=== PATIENT | female | born 1990 | race Caucasian/White ===

== ENCOUNTER 2020-10-06 15:14 | Emergency (ER) | payer OTHER, SELFPAY ==
[2020-10-06 15:24] VITALS: BP 144/15; PULSE 98; RESP 22; TEMP 36.8; O2SAT 98; BMI 33.5
--- NOTE | 2020-10-06 15:34 | HMH.EDGENADL ---
ED Disposition Clinical Impression: Anxiety, Panic attack Disposition: Home, Self-Care Condition on Discharge: Fair Instructions: DI for Anxiety -- Adult, DI for Panic Disorder Additional Instructions: You have been evaluated for anxiety and panic attack. Please follow-up with your primary care doctor. Take all medications as prescribed. Take Vistaril as needed. Return to the emergency department if you have any new or worsening symptoms. Prescriptions: hydrOXYzine HCL [Hydroxyzine HCl] 25 mg PO Q8 PRN 18 Days #12 tab PRN Reason: Anxiety Prescription Printed Referrals: Ben Smith MD [Primary Care Provider] - Time of Disposition: 16:23 - Critical Care Critical Care Time: No Attestation: On , the high probability of a clinically significant, sudden or life threatening deterioration of the following system(s) required my full and direct attention, intervention and personal management. The time I documented below is in addition to time spent performing reported procedures but includes the following listed in this critical care notation. Medical Decision Making - Medical Records Medical records reviewed: Yes: I reviewed the patient's medical records. - Shmuel Inquiry Pt receiving controlled substance: No Vital Signs: 10/06/20 15:24 Temperature 98.2 F Temperature Source Oral Pulse Rate [Right Radial] 98 H Respiratory Rate 22 Blood Pressure [Right Arm] 144/15 H Blood Pressure Mean [Right Arm] 58 Blood Pressure Source [Right Arm] Automatic Cuff Blood Pressure Position [Right Arm] Sitting 02 Sat by Pulse Oximetry 98 Oxygen Delivery Method Room Air Orders (Tests/Meds): ED MEDICATIONS Discontinued Medications Generic Name Dose Route Start Last Admin Trade Name Freq PRN Reason Stop Dose Admin Lorazepam 0.5 mg 10/06/20 15:34 10/06/20 15:52 Lorazepam 0.5mg Tablet PO 10/06/20 15:35 0.5 mg ONCE ONE Administration ORDERS Category Date Time Status EKG Request [ECG Request by /Jordon] Stat Y 10/06/20 15:37 Ordered - ECG Data Tracing #1 Sinus rhythm with ventricular rate of 93 bpm. QRS 82, QTc 430. No ST segment changes. No delta wave. No arrhythmia. Medical Decision Narrative: In summary this is a 30-year-old female with history of anxiety presenting to the emergency department with panic attack. Patient clinically stable on arrival. Vital signs are within normal limits with exception of tachycardia. She is appropriate and participates fully in exam. Denies SI or HI. Denies substance use. Plan to obtain fingerstick blood glucose and EKG. Patient offered oral medication to help with her symptoms. She accepted 0.5 mg Ativan. Fingerstick blood glucose is 102. EKG shows sinus rhythm without arrhythmia. On reassessment she was feeling somewhat better after Ativan. Given 25 mg p.o. Vistaril. After medication patient was feeling much better. She felt comfortable going home. Continued to deny SI or HI. She will follow-up with her primary care physician as needed. Given return precautions. General Adult HPI - General Stated complaint: Anxiety Attack Time Seen by Provider: 10/06/20 15:34 Mode of Arrival: Ambulatory Source of Information: Patient, Parent(s) - History of Present Illness HPI narrative: 30-year-old female presenting to the emergency department with panic. She was at work today when she experienced a stressful event. One of her coworkers had to go home, leaving them short staffed. She suddenly felt very anxious. Unable to control her anxiety. Sat in her car and was crying, rocking. Saying that she felt very anxious. Her mother went to check on her and the patient said that she just wants to feel normal. She has been struggling with worsening anxiety over the last few months. Started seeing her primary care physician who prescribed sertraline. She started Seroquel 2 weeks ago. Says this medication is helping some. She smokes marijuana
[2020-10-06 16:26] VITALS: BP 144/85; PULSE 85; O2SAT 97
[2020-10-06 17:15] VITALS: BP 134/70; PULSE 74; RESP 16; TEMP 36.8; O2SAT 98
[2020-10-07 00:59] LABS: POC Glucose,Bedside 106 (70-110)
== END 2020-10-06 17:16 | disposition home or self-care (01) ==
PROVIDERS: Emergency Provider Emergency Medicine; PCP Family Medicine
DX: F41.0 Panic disorder [episodic paroxysmal anxiety] (principal)
CPT/HCPCS: 82962; 99282

== ENCOUNTER 2020-12-23 09:02 | Emergency (ER) | payer OTHER, SELFPAY ==
[2020-12-23 09:32] VITALS: BP 132/82; PULSE 79; RESP 16; TEMP 36.6; O2SAT 97; BMI 33.2
--- NOTE | 2020-12-23 10:06 | HMH.EDUTC ---
[facility] [place] Disposition Clinical Impression: Rash and nonspecific skin eruption Disposition: Home, Self-Care Condition on Discharge: Good Instructions: DI for Rash, Cephalexin, Prednisone Additional Instructions: Take medication as prescribed Watch rash and follow up with your Family Doctor immediately if no improvement or any worsening of symptom Follow up with Family Doctor on Sunday for re-evaluation of rash Return if needed Straight to ER if any life threatening symptoms Prescriptions: cephALEXin [cephALEXin 500mg capsule*] 500 mg PO Q6H 7 Days #28 cap Transmission Status: Pending to [id number] predniSONE [Deltasone 10mg tablet] 10 mg PO BID 5 Days #10 tab Transmission Status: Pending to [id number] Referrals: Ben Smith MD [Primary Care Provider] - As needed Forms: Work/School Release Time of Disposition: 10:16 Medical Decision Making - Shmuel Inquiry Pt receiving controlled substance: No Shmuel was queried for this patient: No Vital Signs: 12/23/20 09:32 Temperature 97.8 F Temperature Source Oral Pulse Rate [Right Brachial] 79 Respiratory Rate 16 Blood Pressure [Right Arm] 132/82 Blood Pressure Mean [Right Arm] 98 Blood Pressure Source [Right Arm] Automatic Cuff 02 Sat by Pulse Oximetry 97 Oxygen Delivery Method Room Air Medical Decision Narrative: Spoke with patients PCP and discussed treatment of antibiotics and he recommended also add short course of steriods [facility] [place] HPI - General Stated complaint: red spots on ankles and feet Time Seen by Provider: 12/23/20 10:06 Mode of Arrival: Family Vehicle Source of Information: Patient Limitations: No Limitations Description of Symptoms (Recalled from Triage Doc. by RN): Pt c/o painful rash on feet. Pt reports this started yesterday. 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 States that today it was worse so she came in to get it checked - Related Data Home Medications Medication Instructions Recorded Confirmed Quetiapine Fumarate [Seroquel] 25 mg PO HS 12/23/20 12/23/20 Sertraline HCl [Zoloft] 100 mg PO DAILY 12/23/20 12/23/20 Previous Rx's Medication Instructions Recorded hydrOXYzine HCL [Hydroxyzine HCl] 25 mg PO Q8 PRN 18 Days #12 tab 10/06/20 cephALEXin [cephALEXin 500mg 500 mg PO Q6H 7 Days #28 cap 12/23/20 capsule*] predniSONE [Deltasone 10mg tablet] 10 mg PO BID 5 Days #10 tab 12/23/20 Allergies Allergy/AdvReac Type Severity Reaction Status Date / Time No Known Allergies Allergy Verified 10/06/20 16:25 - Worker's Comp Is this a Worker's Comp case?: No [facility] History - Hepatitis A Screen Drug use history?: No High risk sexual behaviors?: No History of sexually transmitted infection?: No Currently employed?: No Childcare worker?: No Do you have indoor plumbing?: Yes Do you have electricity?: Yes Attestation statement:: This patient has been screened for Hepatitis A risk factors. I have reviewed the patient's past medical history: Yes - Social History Alcohol Intake: never Occupational Status: employed ROS Obtained: Yes All systems reviewed & no additional complaints, Yes Systems reviewed as appropriate & no additional complaints - Constitutional Constitutional: Reports system reviewed and no additional complaints, except as docu - Integumentary/Breasts Skin/Breast: Reports rash Comments: itchy painful rash on feet Physical Exam - General General appearance: alert, in no apparent distress - Respiratory Respiratory exam
[2020-12-23 10:25] VITALS: BP 130/82; PULSE 80; RESP 20; TEMP 36.6; O2SAT 97
== END 2020-12-23 10:26 | disposition home or self-care (01) ==
PROVIDERS: Emergency Provider Nurse Practitioner; PCP Family Medicine
DX: R21 Rash and other nonspecific skin eruption (principal)
CPT/HCPCS: 99202; G0463

== ENCOUNTER 2020-12-26 19:34 | Emergency (ER) | payer OTHER, SELFPAY ==
[2020-12-26 19:51] VITALS: BP 147/95; PULSE 99; RESP 16; TEMP 36.6; O2SAT 100; BMI 33.2
--- NOTE | 2020-12-26 19:59 | XR_ITS ---
PROCEDURE: XR CHEST 2V CLINICAL HISTORY: COUGH COMPARISON: No exams were available for comparison FINDINGS: The cardiomediastinal silhouette and pulmonary vascularity are within normal limits. The lungs are clear without infiltrates, suspicious nodules, or pleural effusions. No acute bony abnormalities. IMPRESSION: No acute cardiopulmonary process. Dictated by: Dorina Ayala 12/27/2020 09:42 Dorina Ayala in OV 12/27/2020 09:42
[2020-12-26 20:02] LABS: Adenovirus,PCR Not Detected (NotDetected); Bordetella Pertussis Not Detected (NotDetected); Chlamydophila Pneumoniae, PCR Not Detected (NotDetected); Coronavirus 19, PCR Not Detected (NotDetected); Coronavirus 229E Not Detected (NotDetected); Coronavirus NL63 Not Detected (NotDetected); Coronavirus OC43 Not Detected (NotDetected); Coronovirus HKU1,PCR Not Detected (NotDetected); Human Metapneumovirus Not Detected (NotDetected); Influenza A, PCR Not Detected (NotDetected); Influenza AH1, 2009 Not Detected (NotDetected); Influenza AH1, PCR Not Detected (NotDetected); Influenza AH3,PCR Not Detected (NotDetected); Influenza B, PCR Not Detected (NotDetected); Mycoplasma Pneumoniae, PCR Not Detected (NotDetected); Parainfluenza 1, PCR Not Detected (NotDetected); Parainfluenza 2, PCR Not Detected (NotDetected); Parainfluenza 3, PCR Not Detected (NotDetected); Parainfluenza 4, PCR Not Detected (NotDetected); Respiratory Syncytial Virus Not Detected (NotDetected); Rhinovirus/Enterovirus Not Detected (NotDetected)
--- NOTE | 2020-12-26 20:23 | HMH.EDUTC ---
[facility] [place] Disposition Clinical Impression: Rash and nonspecific skin eruption Disposition: Home, Self-Care Condition on Discharge: Good Instructions: DI for Rash, DI for COVID-19 (Suspected or Confirmed ), COVID-19: Protecting Yourself When You're at High Risk, Preventing the Spread of Coronavirus Discharge Instructions Additional Instructions: self isolate until test results are known to be neg No sign of a bacterial infection. Likely viral. Viruses can take 7-14 days to run their course. Nasal saline and bulb syringe or nose Lashanda to remove nasal drainage to help with nasal congestion. Hard to eat, drink, sleep with nasal congestion so important to keep this cleaned out. Monitor temp. Tylenol or Motrin as needed for pain or fever Encourage fluids, water, Gatorade, Powerade, Pedialyte if /toddler/child Warm salt water gargles Warm fluids Sore throat lozenges Sleep elevated Humidifier/vaporizer Your covid swab was sent to lab- call for results in am Follow-up immediately for new or worsening symptoms or no noticeable improvement over the next 48-72 hours. Referrals: PCP,No [Primary Care Provider] - Isaias Black APRN [Nurse Practitioner] - Forms: Work/School Release Time of Disposition: 21:05 Medical Decision Making - Shmuel Inquiry Pt receiving controlled substance: No Vital Signs: 12/26/20 19:51 12/26/20 20:56 Temperature 97.9 F 98 F Temperature Source Tympanic Pulse Rate 79 Pulse Rate [Right] 99 H Respiratory Rate 16 16 Blood Pressure 142/87 H Blood Pressure [Right Arm] 147/95 H Blood Pressure Mean [Right Arm] 112 Blood Pressure Source [Right Arm] Automatic Cuff Blood Pressure Position [Right Arm] Sitting 02 Sat by Pulse Oximetry 100 Oxygen Delivery Method Room Air - Lab Data Lab Results 12/26/20 20:08: WBC 16.3 H, RBC 4.77, Hgb 13.3, Hct 40.5, MCV 84.9, MCH 27.9, MCHC 32.9, RDW 13.3, Plt Count 411, MPV 7.6, Neut % (Auto) 76.7, Lymph % (Auto) 18.6, [place] % (Auto) 2.7, Eos % (Auto) 1.4, Baso % (Auto) 0.6, Neut # (Auto) 12.5 H, Lymph # (Auto) 3.0, [place] # (Auto) 0.4, Eos # (Auto) 0.2, Baso # (Auto) 0.1, ESR 27 H 12/26/20 20:08: PT 10.2, INR 0.85 L 12/26/20 20:08: Sodium 143, Potassium 4.0, Chloride 106, Carbon Dioxide 28, Anion Gap 13.0, BUN 10, Creatinine 0.70, Estimated Creat Clear 188, Estimated GFR 98, Est GFR ( Amer) 118, Glucose 126 H, Calcium 10.1, Total Bilirubin 0.4, Direct Bilirubin 0.0, Conjugated Bilirubin 0.0, Indirect Bilirubin 0.4, Unconjugated Bilirubin 0.4, AST 42 H, ALT 28, Alkaline Phosphatase 66, C-Reactive Protein 4.5 H, Total Protein 8.9 H, Albumin 4.8, Triglycerides 406 H, Cholesterol 200, LDL Cholesterol Direct 85.27 L, HDL Cholesterol 40, Cholesterol/HDL Ratio 5.0 H 12/26/20 20:08: SARS-CoV-2 IgG Ab (Rapid) Negative, SARS-CoV-2 IgM Ab (Rapid) Negative Result diagrams: 12/26/20 20:08 12/26/20 20:08 Orders (Tests/Meds): ORDERS Category Date Time Status Chest XR 2 view (NOT portable) [XR chest 2V] Stat Exams 12/26/20 19:59 Taken Complete Blood Count Auto Diff Stat Lab 12/26/20 20:08 Results Erythrocyte Sedimentation Rate Stat Lab 12/26/20 20:08 Results Full Resp Panel w/COVID ([facility]) Routine Lab 12/26/20 19:54 Received Hemoglobin A1C Stat Lab 12/26/20 20:08 Received - Radiology Data #1 Image(s): Chest Image Reviewed: Yes I reviewed the patient's radiology results Preliminary Findings: Normal/NAD [facility] [place] HPI - General Chief complaint: Urgent Treatment [facility] Stated complaint: feet,swollen,red painful, hard to walk Time Seen by Provider: 12/26/20 20:00 Mode of Arrival: Ambulatory Source of Information: Patient Limitations: No Limitations Description of Symptoms (Recalled from Triage Doc. by RN): pt has a rash bilateral on her feet up to her knees. its blood red spots that are tender to the touch. you can see where some have healed and turned more oates whereas the newer is bright red. feet are swollen and warm. pt complains of congesti
[2020-12-26 20:27] LABS: Alanine Aminotransferase 28 U/L (12-78); Albumin Level 4.8 g/dl (3.5-5.0); Alkaline Phosphatase 66 U/L (38-126); Aspartate Amino Transferase 42 U/L (14-36); Bilirubin,Indirect 0.4 mg/dL (0.0-0.9); Bilirubin,Total 0.4 mg/dl (0.2-1.3); Bilirubin,Unconjugated 0.4 mg/dL (0.0-1.1); Blood Urea Nitrogen 10 mg/dl (7-17); Calcium 10.1 mg/dl (8.4-10.2); Carbon Dioxide 28 mmol/L (22.0-30.0); Chloride 106 mmol/L (98-107); Cholesterol 200 mg/dl (140-200); Creatinine Clearance Estimated 188 mL/min (50-200); Estimated Glomerular Filt Rate 98 ml/min (>60); GFR (African American) 118 ML/MIN (>60); Glucose 126 mg/dl (74-100); HDL Cholesterol 40 mg/dl (40-60); Sodium 143 mmol/L (136-145); Total Protein,Serum 8.9 g/dl (6.3-8.2)
[2020-12-26 20:31] LABS: Triglycerides 406 mg/dl (30-150)
[2020-12-26 20:35] LABS: INR 0.85 (0.9-1.1); Prothrombin Time 10.2 seconds (10.1-12.5)
[2020-12-26 20:38] LABS: Basophils # 0.1 K/mm3 (0-0.2); Basophils % 0.6 % (0.1-2.0); C-Reactive Protein 4.5 mg/L (0-4); Direct LDL Cholesterol 85.27 mg/dL (100-129); Eosinophils # 0.2 K/mm3 (0.0-0.4); Eosinophils % 1.4 % (0.1-12.0); Hematocrit 40.5 % (37.0-47.0); Hemoglobin 13.3 g/dL (12.2-16.2); Lymphocytes % 18.6 % (10-50); Mean Corpuscular HGB Conc 32.9 g/dL (31.8-35.4); Mean Corpuscular Hemoglobin 27.9 pg (27.0-31.2); Mean Corpuscular Volume 84.9 fl (81-99); Mean Platelet Volume 7.6 fl (7.4-10.4); Monocytes # 0.4 K/mm3 (0.1-1.0); Monocytes % 2.7 % (1.7-9.3); Neutrophils # 12.5 K/mm3 (1.8-7.8); Neutrophils % 76.7 % (37.0-80.0); Platelet Count 411 K/mm3 (142-424); Red Blood Count 4.77 M/mm3 (4.20-5.40); Red Cell Distribution Width 13.3 % (11.5-17.5); White Blood Count 16.3 K/mm3 (4.8-10.8)
[2020-12-26 20:40] LABS: MANUAL DIFFERENTIAL MANUAL DIFFERENTIAL (MANUAL DIFF)
[2020-12-26 20:56] VITALS: BP 142/87; PULSE 79; RESP 16; TEMP 36.6
[2020-12-26 21:03] LABS: Coronavirus 19 IgG Antibody Negative (Negative); Coronavirus 19 IgM Antibody Negative (Negative); Erythrocyte Sedimentation Rate 27 mm/hr (0-20)
[2020-12-26 21:18] LABS: Lymphocytes % 15 % (10-50); Monocytes % 1 % (2-9); Neutrophils % 80 % (42-76); Platelet Estimate Normal; RBC Morphology Normal; Total Cells Counted 100
[2020-12-26 21:22] LABS: Hemoglobin A1C 5.1 % (4.0-6.0)
== END 2020-12-26 21:10 | disposition home or self-care (01) ==
PROVIDERS: Emergency Provider Nurse Practitioner Family
DX: R21 Rash and other nonspecific skin eruption (principal); Z20.822 Contact with and (suspected) exposure to COVID-19; F41.9 Anxiety disorder, unspecified; Z79.899 Other long term (current) drug therapy
CPT/HCPCS: 71046; 80048; 80061; 80076; 83036; 85007; 85025; 85610; 85651; 86140; 86328; 87581; 87633; 87798; 99202; G0463